=== PATIENT | male | born 1980 | race Two or more races ===

== ENCOUNTER 2020-08-03 20:33 | Emergency (ER) | payer MEDICARE, OTHER ==
[~2020-08-03] VITALS: Ht 177.8 cm; Wt 140.6 kg
--- NOTE | 2020-08-03 20:33 | NUR ---
PT [id number] FOR WEAK/DIZZY S/P PLASMA DONATION. PT AAOX4, VSS, RESPIRATIONS EVEN AND UNLABORED ON RA W/ NAD NOTED. PT CONNECTED TO THE MONITOR AND POX
[2020-08-03] MEDS: IV NS 0.9% 1,000 ML BAG IV ONE (21:03)
[2020-08-03 21:04] LABS: BASOPHILS # (AUTO) 0.1 /CMM (0.0-0.2); BASOPHILS % (AUTO) 0.4 % (0.0-2.0); EOSINOPHILS % (AUTO) 1.5 % (0.0-6.0); HEMATOCRIT 46 % (39-51); HEMOGLOBIN 14.9 g/dL (13.5-17.5); LYMPHOCYTES # (AUTO) 1.5 /CMM (0.8-4.8); LYMPHOCYTES % (AUTO) 10.6 % (20.0-44.0); MEAN CORPUSCULAR HGB CONC 32 g/dl (31.0-36.0); MEAN CORPUSCULAR VOLUME 91 fL (80-96); MONOCYTES # (AUTO) 1.1 /CMM (0.1-1.30); MONOCYTES % (AUTO) 7.4 % (2.0-12.0); NEUTROPHILS # (AUTO) 11.5 /CMM (1.8-8.9); NEUTROPHILS % (AUTO) 80.1 % (43.0-81.0); PLATELET COUNT (AUTO) 293 /CMM (150-450); RED BLOOD CELL COUNT(AUTO) 5.13 MIL/uL (4.5-6.0); WHITE BLOOD COUNT (AUTO) 14.3 K/uL (4.3-11.0)
--- NOTE | 2020-08-03 21:05 | NUR ---
BLOOD COLLECTED AND SENT TO LAB
[2020-08-03 21:11] LABS: CALCIUM, SERUM 8.1 mg/dL (8.5-10.1); CREATININE 1.4 mg/dL (0.6-1.3); POTASSIUM 3.6 mmol/L (3.5-5.1)
--- NOTE | 2020-08-03 21:38 | NUR ---
IV removed. Catheter intact and site benign. Pressure and 4x4 applied to site. No bleeding noted.
--- NOTE | 2020-08-03 21:38 | NUR ---
Patient discharged to home in stable condition. Written and verbal after care instructions given. Patient verbalizes understanding of instruction. PT ambulatory with a steady gait. Pt doesnt want to wait for dc papers
[2020-08-03 22:04] VITALS: BP 138/81
== END 2020-08-03 22:31 | disposition home or self-care (01) ==
LOC: ER 20:37
DX: E86.0 Dehydration (principal); R42 Dizziness and giddiness; D64.9 Anemia, unspecified
CPT/HCPCS: 80048; 82962; 85025; 96360; 99283; J7030; 36415